=== PATIENT | male | born 1990 | race Two or more races ===

== ENCOUNTER 2019-06-24 13:25 | Emergency (ER) | payer SELFPAY ==
[~2019-06-24] VITALS: Ht 177.8 cm; Wt 63.5 kg
[2019-06-24 13:56] LABS: Basophils # (auto) 0 uL; Basophils % (auto) 0.2 % (0.0-2.0); Eosinophils # (auto) 0 uL; Eosinophils % (auto) 0.1 % (0.0-7.0); Monocytes # (auto) 0.2 uL
[2019-06-24 13:58] LABS: Hematocrit 51.1 % (41.0-53.0); Hemoglobin 17.6 g/dL (13.5-17.5); Lymphocytes # (auto) 0.7 uL; Lymphocytes % (auto) 6.2 % (10.0-50.0); Mean Corpuscular Hemoglobin 31.4 pg (28.0-32.0); Mean Corpuscular Hgb Conc. 34.4 g/dL (32.0-36.0); Mean Corpuscular Volume 91.4 fL (80.0-100.0); Monocytes % (auto) 1.8 % (0.0-12.0); Neutrophils # (auto) 10.4 uL; Neutrophils % (auto) 91.7 % (37.0-80.0); Platelet Count (auto) 244 10^3/uL (140-450); Red Blood Cells 5.59 10^6/uL (4.5-5.90); White Blood Cell 11.3 10^3/uL (4.4-10.8)
[2019-06-24 14:19] LABS: Urine Amorphous Crystal MANY /hpf (None Seen); Urine Bacteria NONE SEEN /hpf (None Seen); Urine Blood Negative /uL (Negative); Urine Mucus FEW (None Seen); Urine Specific Gravity 1.021 (1.001-1.035); Urine WBC 30 /hpf (0 - 3); Urine WBC Clumps PRESENT /hpf (None Seen)
[2019-06-24 14:20] LABS: Albumin 4.5 g/dL (3.4-5.0); Calcium 9.5 mg/dL (8.5-10.1); Potassium 3.9 mmol/L (3.5-5.1)
[2019-06-24 14:22] LABS: BUN/Creatinine Ratio 16.7
[2019-06-24 14:25] LABS: Bilirubin, Total 1.3 mg/dL (0.2-1.0); Total Protein 8.6 g/dL (6.4-8.2)
[2019-06-24] MEDS ORDERED: cefTRIAXone 1GM/50ML D5W 50 ML IV ONE (16:45)
[2019-06-24] MEDS ORDERED: LIDOCAINE VISCOUS 2% 15ML UD PO ONE (17:30)
[2019-06-24] MEDS ORDERED: DONNATAL 5ml ORAL Elix (BELLADONNA ALK-PHENOBARB) PO ONE (17:30)
[2019-06-24] MEDS ORDERED: ALUM & MAG HYDROX-SIMETH LIQ(MAALOX) 30 ML PO ONE (17:30)
[2019-06-24] MEDS ORDERED: SODIUM CHLORIDE 0.9% 1,000 ML IV SCH (17:54)
[2019-06-24 17:58] VITALS: BP 114/65
[2019-06-24] MEDS ORDERED: LORazepam 0.5 MG TAB PO PRN (18:00)
[2019-06-24] MEDS ORDERED: NALBUPHINE HCL 10 MG/1ml INJECTION IV PRN (18:00)
[2019-06-24] MEDS ORDERED: ACETAMINOPHEN 500 MG TAB PO PRN (18:00)
[2019-06-24] MEDS ORDERED: PROMETHAZINE HCL 25 MG/ML 1ML IV PRN (18:00)
[2019-06-24] MEDS ORDERED: FAMOTIDINE (10MG/ML) 2ML VL IV SCH (18:00)
[2019-06-24] MEDS ORDERED: traMADol HCL 50 MG TAB PO PRN (18:00)
[2019-06-24] MEDS ORDERED: DEXTROSE (50%) 50ML SYRG IV PRN (18:00)
[2019-06-24] MEDS ORDERED: ACCU-CHEK COMFORT CURVE STRIP VI SCH (22:00)
[2019-06-25] MEDS ORDERED: cefTRIAXone 1GM/50ML D5W 50 ML IV SCH (09:00)
== END 2019-06-24 17:54 | disposition other institution (70) ==
LOC: EDSEX 13:31 → ER 13:31 → OVERFLOW 13:32 → UNDOADMIN 13:32 → ER 17:54
DX: N39.0 Urinary tract infection, site not specified (principal); E86.0 Dehydration; K82.9 Disease of gallbladder, unspecified; R11.2 Nausea with vomiting, unspecified
CPT/HCPCS: 36415; 74176; 80053; 81001; 82150; 83036; 83690; 85025; 87086; 96361; 96365; 96375; 99284; J0696; J3490